=== PATIENT | male | born 1975 | race Caucasian/White ===

== ENCOUNTER 2016-05-05 05:29 | Day surgery (SDC) | payer OTHER ==
[~2016-05-05] VITALS: Ht 180.3 cm; Wt 104.3 kg
[~2016-05-05 05:29] MED LIST: ADVAIR; ADVAIR 250/501 DISK IH; ALBUTEROL; AMBIEN10 MG PO; BENICAR; BENICAR HCT 201 EACH PO; BENTYL10 MG PO; NOHOMEMEDS; REGLAN10 MG PO; SYMBICORT60 INHALA1 IH; ULTRAM50 MG PO; ZOFRAN4 MG PO
[2016-05-05] MEDS ORDERED: VIAGRA25 MG PO (06:03)
[2016-05-05] MEDS ORDERED: ADDERALL20 MG PO (06:04)
[2016-05-05 06:12] VITALS: BP 117/82
[2016-05-05] MEDS ORDERED: NORCO 5/3251 TABLET PO (08:53)
[2016-05-05 09:10] VITALS: BP 135/89
[2016-05-05 09:47] VITALS: BP 115/67
== END 2016-05-05 09:53 | disposition home or self-care (01) ==
LOC: SDC 05:29
PROC: 0WUF0JZ Supplement Abdominal Wall with Synthetic Substitute, Open Approach (ICD-10-PCS; principal; 2016-05-05)
DX: K42.9 Umbilical hernia without obstruction or gangrene (principal); I10 Essential (primary) hypertension; J45.909 Unspecified asthma, uncomplicated; F17.220 Nicotine dependence, chewing tobacco, uncomplicated; E66.9 Obesity, unspecified; Z68.33 Body mass index [BMI] 33.0-33.9, adult; Z82.5 Family history of asthma and other chronic lower respiratory diseases; Z83.3 Family history of diabetes mellitus; Z82.49 Family history of ischemic heart disease and other diseases of the circulatory system
CPT/HCPCS: C1781; J0131; J0690; J1100; J1885; J2250; J3010; S0020

== ENCOUNTER 2016-07-22 21:21 | Emergency (ER) | payer OTHER ==
[~2016-07-22] VITALS: Ht 177.8 cm; Wt 105.5 kg
[~2016-07-22 21:21] MED LIST changes: +ADDERALL20 MG PO; +NORCO 5/3251 TABLET PO; +VIAGRA25 MG PO
[2016-07-22 23:11] LABS: HEMATOCRIT 45.8 % (38.0-50.0); MCH 29.8 PG (29.0-34.0); MCHC 34.1 G/DL (30.0-36.0); MCV 87.6 FL (86-99); MEAN PLAT.VOLUME 8.8 uM^3 (9.0-12.4); PLATELET COUNT 252 K/uL (156-360); RBC DIS.WIDTH-CV 14.1 % (11.8-14.6); RBC DIS.WIDTH-SD 44.3 % (39-53); RED BLOOD COUNT 5.23 M/uL (4.00-5.50); WHITE BLOOD COUNT 9.5 K/uL (4.1-10.2)
[2016-07-22 23:23] LABS: CHLORIDE 104 mEq/L (99-109); POTASSIUM 3.2 mEq/L (3.7-5.4); SODIUM 138 mEq/L (136-147)
[2016-07-22 23:25] LABS: GLUCOSE 168 mg/dL (70-99)
[2016-07-22 23:26] LABS: ANION GAP 12 MEQ/L (2-14)
[2016-07-22 23:29] LABS: GFR ESTIMATE (CALCULATED) > 59 mL/min/
[2016-07-22 23:30] LABS: UREA NITROGEN (BUN) 19 mg/dL (9-23)
[2016-07-23] MEDS ORDERED: PREDNISONE20 MG PO (00:15)
[2016-07-23 00:27] VITALS: BP 111/68
== END 2016-07-23 00:28 | disposition home or self-care (01) ==
LOC: EME 21:21
PROVIDERS: Emergency Medicine
DX: L23.9 Allergic contact dermatitis, unspecified cause (principal)
CPT/HCPCS: 80048; 83605; 85027; 87040; 94640; 99281; 99284; J1100; J7030